=== PATIENT | female | born 1950 | race Caucasian/White ===

== ENCOUNTER → 2017-06-07 | Outpatient (CLI) | payer MEDICARE, OTHER ==
[2017-06-07 14:45] LABS: BASO # 0.1 x10^3/uL (0.0-0.2); BASO % 1 % (0-3); EOS % 0 % (0-3); HEMATOCRIT 45.9 % (36.0-47.0); HEMOGLOBIN 15.5 g/dL (12.0-15.5); LYMPH # 3.7 x10^3/uL (1.0-4.8); LYMPH % 31 % (24-48); MEAN CORPUSCULAR HEMOGLOBIN 28 pg (25-35); MEAN CORPUSCULAR HGB CONC 34 g/dL (31-37); MEAN CORPUSCULAR VOLUME 83 fL (79-100); MONO # 0.6 x10^3/uL (0.0-1.1); MONO % 5 % (0-9); NEUT # 7.5 x10^3uL (1.8-7.7); NEUT % 63 % (31-73); PLATELET COUNT 447 x10^3/uL (140-400); RED CELL DISTRIBUTION WIDTH 13.9 % (11.5-14.5); WHITE BLOOD COUNT 11.9 x10^3/uL (4.0-11.0)
== END | disposition home or self-care (01) ==
LOC: LAB 13:58
PROVIDERS: ATTEND Nurse Practitioner Family
DX: R53.83 Other fatigue (principal)
CPT/HCPCS: 36415; 85025

== ENCOUNTER → 2017-06-23 | Outpatient (CLI) | payer MEDICARE, OTHER ==
--- NOTE | 2017-06-23 12:05 | RAD ---
CT HEAD WO CONTRAST History: Dizziness for 3 weeks Comparison: None. Technique: Noncontrast CT imaging was performed of the head. Exposure: One or more of the following individualized dose reduction techniques were utilized for this examination: 1. Automated exposure control 2. Adjustment of the mA and/or kV according to patient size 3. Use of iterative reconstruction technique. Findings: No acute extra-axial or parenchymal hemorrhage is identified. There is no significant intra-axial mass effect, midline shift, or extra-axial fluid collection. The delacruz-white differentiation of the major vascular territories is preserved. The ventricles, sulci, and cisterns are within normal limits in size and configuration. There is mild ill-defined low-density of the supratentorial white matter such as of the bilateral frontal lobes. The mastoid air cells and the visualized paranasal sinuses are aerated. No acute calvarial abnormality is identified. Impression: 1. No acute intracranial abnormality is identified. If there is concern for evolving or acute ischemia, followup CT or MRI could be beneficial. There is mild ill-defined low-density such as of the frontal lobe white matter bilaterally, nonspecific findings most commonly due to chronic microvascular ischemic disease in a patient of this age. Electronically signed by: Herrera Bertrand MD (06/23/2017 12:02 PM) [id number]
== END | disposition home or self-care (01) ==
LOC: CT 10:17
PROVIDERS: ATTEND Family Medicine
DX: H81.313 Aural vertigo, bilateral (principal)
CPT/HCPCS: 70450

== ENCOUNTER → 2020-05-23 | Outpatient (CLI) | payer MEDICARE, OTHER ==
--- NOTE | 2020-05-23 11:16 | RAD ---
ABDOMEN COMPLETE History: Abdominal distention, gas Comparison: None. Findings: Multiple sonographic images of the abdomen are submitted. Pancreas is poorly seen due to bowel gas, no obvious abnormality of the limited visualized pancreatic head. There is segmental visualization of the inferior vena cava. Abdominal aortic caliber is within normal limits up to 2.5 cm. There is coarsening of the hepatic echotexture. Right lobe of the liver measured 16 cm longitudinal. Gallbladder is suboptimally visualized, no obvious intraluminal abnormality demonstrated. Spleen measured 8.9 cm. Right kidney measured 10.5 x 4.7 x 4.4 cm, no hydronephrosis. Left kidney measured 11.2 x 4.8 x 4.5 cm, no hydronephrosis. Common bile duct is within normal limits about 0.5 cm. Impression: 1. There is hepatic steatosis. 2. Gallbladder is suboptimally visualized, no obvious abnormality demonstrated. Electronically signed by: Herrera Bertrand MD (05/23/2020 11:12 AM) [id number]
== END ==
LOC: US 08:11
PROVIDERS: ATTEND Family Medicine
DX: K76.0 Fatty (change of) liver, not elsewhere classified (principal); R14.0 Abdominal distension (gaseous)
CPT/HCPCS: 76700

== ENCOUNTER → 2020-05-29 | Outpatient (CLI) | payer MEDICARE, OTHER ==
[~2020-05-29] MED LIST: IOHEXOL 240 MG/ML 50ML VIAL. PO ONE
--- NOTE | 2020-05-29 11:45 | RAD ---
EXAM: Abdomen and pelvis CT without intravenous contrast. HISTORY: Bloating. TECHNIQUE: Computed tomographic images of the abdomen and pelvis were obtained without intravenous contrast. Multiplanar reformatting was performed. *One or more of the following individualized dose reduction techniques were utilized for this examination: 1. Automated exposure control. 2. Adjustment of the mA and/or kV according to patient size. 3. Use of iterative reconstruction technique. COMPARISON: None. FINDINGS: Evaluation of the lower thorax there demonstrates no infiltrate or pleural effusion. There is a small hiatal hernia. No suspicious hepatic lesion is seen on this noncontrast exam. The gallbladder, pancreas, spleen and adrenal glands are unremarkable. 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 There is no hydronephrosis. There is no nephroureterolithiasis. The appendix is not seen and is likely surgically absent. There is extensive distal colonic diverticulosis. There is no convincing acute diverticulitis. The uterus is surgically absent. There are 1.3 cm and 0.8 cm left ovarian follicles/follicular cysts. There are 3.9 cm and 1.9 cm right ovarian cyst, the smaller of which contains a circular 8 mm calcification. The aorta is normal in caliber. There is no lymphadenopathy. There are degenerative changes involving the lumbar spine. There are sclerotic lesions throughout the sacrum and right iliac bone. IMPRESSION: 1. Cystic lesions within the right ovary measuring 3.9 cm and 1.9 cm. The possibility of a cystic neoplasm is not excluded and postmenopausal female. Correlate with a CA-125 serum tumor marker level and possible pelvic sonography for further characterization. There are also small cysts or follicles within the contralateral ovary. 2. Sclerotic lesions within the sacrum and right iliac bone, the appearance of which is most concerning for osseous metastatic disease. Correlate for known primary neoplasm. Bones scintigraphy may be useful. 3. Since of colonic diverticulosis, without evidence of diverticulitis. 4. Small hiatal hernia. Electronically signed by: Dejah Mccall MD (05/29/2020 11:42 AM) [place] [id number]
== END ==
LOC: CT 08:48
PROVIDERS: ATTEND Family Medicine
DX: K57.30 Diverticulosis of large intestine without perforation or abscess without bleeding (principal); K44.9 Diaphragmatic hernia without obstruction or gangrene; I72.8 Aneurysm of other specified arteries; Z90.710 Acquired absence of both cervix and uterus; N83.291 Other ovarian cyst, right side; M47.816 Spondylosis without myelopathy or radiculopathy, lumbar region; M53.3 Sacrococcygeal disorders, not elsewhere classified
CPT/HCPCS: 74176

== ENCOUNTER → 2020-05-31 | Outpatient (CLI) | payer MEDICARE, OTHER ==
--- NOTE | 2020-05-31 14:40 | RAD ---
Transvaginal pelvic ultrasound 05/31/2020 CLINICAL HISTORY: Cystic lesion seen in the right ovary on recent CT scan. Pelvic ultrasound was recommended for further evaluation. TECHNIQUE: A transvaginal pelvic ultrasound study was performed. Multiple images were obtained. FINDINGS: Comparison is made to the patient's CT scan of the abdomen and pelvis dated 05/21/2020. The uterus is not visualized consistent with the patient's history of a hysterectomy. The left ovary is normal in size. The left ovary measures 2.8 x 1.3 x 1.6 cm. A 1 cm cyst is seen within the left ovary. The right ovary is not visualized. A tubular anechoic structure is seen within the right ovary which measures 3 cm in greatest diameter. This corresponds to the abnormality seen on the patients CT scan. This may represent a hydrosalpinx. Clinical correlation with the patient's surgical history is recommended. No free fluid is seen. IMPRESSION: 1. Post hysterectomy. 2. 3 cm tubular structure is seen within the right adnexa which corresponds to the abnormality seen on the patients CT scan. This may represent a hydrosalpinx. Electronically signed by: Ezra Huang MD (05/31/2020 2:37 PM) [id number]
--- NOTE | 2020-05-31 15:52 | RAD ---
Whole body bone scan HISTORY: Abnormal bony lesions and pelvis and hip 25 mCi of FDG was administered intravenously and spot views are whole-body obtained after appropriate delay. The right iliac is subtle increased scintigraphic activity compared to left. There is mild increased uptake within the shoulders knees and ankles consistent with degenerative change. There is multifocal increased uptake within the spine consistent with degenerative change. IMPRESSION: Subtle increased uptake within the right iliac could be secondary to Paget's disease. Clinical correlation is suggested. Electronically signed by: Josh Gomez III, MD (05/31/2020 3:49 PM) [facility]
== END ==
LOC: NM 08:40
PROVIDERS: ATTEND Family Medicine
DX: D39.11 Neoplasm of uncertain behavior of right ovary (principal); N83.292 Other ovarian cyst, left side; M17.0 Bilateral primary osteoarthritis of knee; M19.072 Primary osteoarthritis, left ankle and foot; M19.071 Primary osteoarthritis, right ankle and foot; M19.012 Primary osteoarthritis, left shoulder; M19.011 Primary osteoarthritis, right shoulder; R93.7 Abnormal findings on diagnostic imaging of other parts of musculoskeletal system; Z90.711 Acquired absence of uterus with remaining cervical stump
CPT/HCPCS: 76830; 78306; A9503

== ENCOUNTER 2021-09-08 14:57 | Emergency (ER) | payer MEDICARE, OTHER ==
[~2021-09-08] VITALS: Ht 165.1 cm; Wt 77.6 kg
--- NOTE | 2021-09-08 15:29 | PHYS DOC ---
Past History Past Surgical History: No Surgical History (JERAD ALCALA APRN) Alcohol Use: Occasionally (JERAD ALCALA APRN) General Adult EDM: Chief Complaint: UPPER EXTREMITY PAIN HPI: HPI: Patient is a 71-year-old female who presents to the emergency department for right shoulder pain following a fall. Patient reports that around 1430 she sl ipped on a plastic bag [employer] and fell forward. She does report hitting her head denies loss of consciousness, blood thinner use, nausea, vomiting, confusion. Patient is reporting pain to her right shoulder 10 out of 10. There is no obvious deformity. No treatment prior to arrival. Patient has good range of motion of her hand, denies any decreased sensation and neck or back pain. (JERAD ALCALA APRN) Review of Systems: Review of Systems: Constitutional: negative unless reported in HPI Eyes: negative unless reported in HPI HENT: negative unless reported in HPI Respiratory: negative unless reported in HPI Cardiovascular: negative unless reported in HPI GI: negative unless reported in HPI : negative unless reported in HPI Musculoskeletal: negative unless reported in HPI Integument: negative unless reported in HPI Neurologic: negative unless reported in HPI Endocrine: negative unless reported in HPI Lymphatic: negative unless reported in HPI Psychiatric: negative unless reported in HPI (JERAD ALCALA APRN) Allergies: Allergies: Allergies Coded Allergies Type Severity Reaction Last Updated Verified povidone-iodine Allergy Unknown 05/29/20 Yes soap Allergy Unknown 05/29/20 Yes (JERAD ALCALA APRN) Physical Exam: PE: Constitutional: Well developed, well nourished, no acute distress, non-toxic appearance. [] HENT: Normocephalic, atraumatic, bilateral external ears normal, oropharynx moist, no oral exudates, nose normal. [] Eyes: PERRL, EOMI, conjunctiva normal, no discharge. [] Neck: Normal range of motion, no tenderness, supple, no stridor. [] Cardiovascular:Heart rate regular rhythm, no murmur [] Lungs & Thorax: Bilateral breath sounds clear to auscultation [] Abdomen: Bowel sounds normal, soft, no tenderness, no masses, no pulsatile masses. [] Skin: Warm, dry, no erythema, no rash. [] Back: No tenderness, normal range of motion Extremities: No tenderness, no cyanosis, no clubbing, ROM intact, no edema. [] Right shoulder: Obvious deformity noted to right shoulder, neuro intact, moveme nt intact to hand. Neurologic: Alert and oriented X 3, normal motor function, normal sensory function, no focal deficits noted. [] Psychologic: Affect normal, judgement normal, mood normal. [] (JERAD ALCALA APRN) Current Patient Data: Vital Signs: Vital Signs Date Time Temp Pulse Resp B/P (MAP) Pulse Ox O2 Delivery O2 Flow Rate FiO2 09/08/21 14:59 98.0 81 18 150/78 (102) 92 Room Air (JERAD ALCALA APRN) EKG: EKG: [] (JERAD ALCALA APRN) Radiology/Procedures: Radiology/Procedures: []PROCEDURE: HUMERUS RIGHT EXAM: Right shoulder, 3 views; right humerus, single view. HISTORY: Fall. COMPARISON: None. FINDINGS: 3 views of the right shoulder and a single view of the humerus are obtained. There is an anterior shoulder dislocation there is mild osteoarthritis involving the acromioclavicular joint. IMPRESSION: Right shoulder dislocation. Follow-up following reduction is recommended to confirm appropriate alignment and exclude a concomitant fracture. Electronically signed by: Dejah Santana MD (09/08/2021 3:28 PM) [id number] PROCEDURE: SHOULDER 2+V RIGHT Exam: Right shoulder 2 views INDICATION: Post reduction TECHNIQUE: Frontal and transscapular Y views the right shoulder Comparisons: Radiograph earlier today FINDINGS: There is improved alignment at the right glenohumeral joint. No acute fractures identified. Soft tissues are unremarkable. Bone mineralization is normal. IMPRESSION: Improved alignment at the right glenohumeral joint. Electronically signed by: Fatou Guerra MD (09/08/2021 4:57 PM) [facility] DICTATED AND SIGNED BY: FATOU GUERRA MD DATE: 09/08/21 1656 CC: RONALDO INMAN MD; RAIZA RAMOS DO ~MTH0 0 DICTATED AND SIGNED BY: DEJAH SANTANA MD DATE: 09/08/21 1527 CC: RONALDO INMAN MD; RAIZA RAMOS DO ~MTH0 0 PROCEDURE: CT HEAD AND CERVICAL SPINE WO Exam: CT head and cervical spine INDICATION: Head injury, fall TECHNIQUE: Sequential axial images through the head and cervical spine were obtained without the administration of IV contrast. Exposure: One or more of the following in the visualized dose reduction techniques were utilized for this examination: 1. Automated exposure control 2. Adjustment of the MA and/or KV according to patient size 3. Use of iterative of reconstructive technique Comparisons: None FINDINGS: Head: No focal parenchymal lesion or hemorrhage is identified. There is no midline shift or sulcal effacement. Mild patchy hypodensity in the periventricular white matter. No acute vascular territory infarction is identified. Chaparro-white distinction is preserved. The ventricular system is within normal limits without compression hydrocephalus. The basal cisterns are well maintained. The visualized portions of the paranasal sinuses and mastoid air cells are well- pneumatized. No acute fractures. Cervical spine: Straightening of cervical spine which may positional. Grade 1 anterolisthesis of C3 on C4 and C4 on C5. Fracture to the cervical spine is not identified. Multilevel spondylotic change in cervical spine with degenerative disc disease greatest at C4-C5 and C5-C6. Bilateral facet arthropathy is also noted in cervical spine. Visualized paraspinal soft tissues are unremarkable. IMPRESSION: 1. No acute intracranial abnormality. 2. Negative CT C-spine for acute traumatic injury. Electronically signed by: Fatou Guerra MD (09/08/2021 5:30 PM) [facility] DICTATED AND SIGNED BY: FATOU GUERRA MD DATE: 09/08/21 1724 CC: RONALDO INMAN MD; JERAD ALCALA APRN; RAIZA RAMOS DO ~MTH0 0 (JERAD ALCALA APRN) Radiology/Procedures: Indication: Right anterior shoulder dislocation Consent: Provided verbally by patient, daughter present in ED who signed consent form Physician Involvement: The attending physician was present and supervising this procedure. Pre-Sedation Documentation and Exam: [id number] Airway Assessment: Mallampati 2 Prior History of Anesthesia Complications: Nausea ASA Classification:1 Sedation/ Anesthesia Plan: Ketamine Medications Used: Ketamine Monitoring and Safety: The patient was placed on a nurse monitoring and vital signs, pulse oximetry and level of consciousness were continuously evaluated throughout the procedure. The patient was closely monitored until recovery from the medications was complete and the patient had returned to baseline status. Respiratory therapy was on standby at all times during the procedure. (The following sections must be completed) Post-Sedation Vital Signs: See nursing documentation, hemodynamically stable Post-Sedation Exam: Alert and oriented, GCS 15 Complications: None Indication: Right anterior shoulder dislocation Consent: Provided verbally by patient, daughter signed consent for Procedure: The pre-reduction exam showed equal radial pulses classic neuro sensation intact. The patient was placed in supine position. Anesthesia/pain control with ketamine. Reduction of the right shoulder was performed by traction/countertraction. Post reduction films showed reduction. A post- reduction exam revealed neurologic status intact. The affected area was immobilized with shoulder immobilize. The patient tolerated the procedure . Complications: None (RAIZA RAMOS DO) Heart Score: C/O Chest Pain: N/A Risk Factors: Risk Factors: DM, Current or recent (<one month) smoker, HTN, HLP, family history of CAD, obesity. Risk Scores: Score 0 - 3: 2.5% MACE over next 6 weeks - Discharge Home Score 4 - 6: 20.3% MACE over next 6 weeks - Admit for Clinical Observation Score 7 - 10: 72.7% MACE over next 6 weeks - Early Invasive Strategies (JERAD ALCALA APRN) Course & Med Decision Making: Course & Med Decision Making Pertinent Labs and Imaging studies reviewed. (See chart for details) []Patient presents to the emergency department today for right shoulder pain after falling. Patient does have an obvious deformity to her right shoulder, she is neurovascularly intact. Consulted physician. Patients pain was treated. Conscious sedation performed with ketamine in the emergency department, supervising physician at bedside and the close reduction of the right shoulder was performed. Patient tolerated procedure. Patient was recovered following procedure per nursing guidelines. Patient's shoulder was placed in a shoulder immobilizer. post reduction xray shows improved alignment. Due to head injury an d age, ct of head performed, which was negative. I discussed with patient all findings and diagnostic testing as well as the need to follow-up with PCP for further evaluation and treatment or return to the ER if any new or worsening symptoms. Strict return precautions were also discussed at length. Patient voiced understanding and agreement with the plan. Patient is hemodynamically stable at the time of disposition. (JERAD ALCALA APRN) Dragon Disclaimer: Dragon Disclaimer: This electronic medical record was generated, in whole or in part, using a voice recognition dictation system. (JERAD ALCALA APRN) Departure Departure: Impression: Primary Impression: Shoulder dislocation Qualified Codes: S43.004A - Unspecified dislocation of right shoulder joint, initial encounter Disposition: HOME / SELF CARE / HOMELESS Condition: GOOD Referrals: RONALDO INMAN MD (PCP) RONALDO VALDEZ II, MD Patient Instructions: Shoulder Dislocation Additional Instructions: You were seen in the emergency department today following a dislocation of your right shoulder. The scan of your head was negative. The shoulder was put back into place and you were placed in a shoulder immobilizer. Continue to wear this at home. Can take ibuprofen or naproxen for mild pain. For severe pain you are being discharged home with pain medication. This medication is hydrocodone and Tylenol and a combination tablet. Not take any additional Tylenol with this medication. This medication may cause sedation so do not take when he needs to be alert, driving a vehicle or with alcohol. Follow-up with your primary care provider tomorrow regarding your ER visit, you will need to follow-up with an orthopedic doctor within a week. Continue to wear your shoulder immobilizer until you follow-up with the orthopedic doctor. An orthopedic doctor was attached to your discharge papers. Return to the emergency department if you redislocate your shoulder or have increased pain, decreased sensation to your extremity, swelling or any new or worsening concerns. Scripts Hydrocodone Bit/Acetaminophen (HYDROCODONE-APAP 5-325 ) 1 Each Tablet 1 TAB PO PRN Q6HRS PRN for PAIN for 2 Days, #8 TAB 0 Refills Prov: JERAD ALCALA APRN 09/08/21 JERAD ALCALA APRN Sep 08, 2021 15:29 RAIZA RAMOS DO Sep 08, 2021 18:20
--- NOTE | 2021-09-08 15:30 | RAD ---
EXAM: Right shoulder, 3 views; right humerus, single view. HISTORY: Fall. COMPARISON: None. FINDINGS: 3 views of the right shoulder and a single view of the humerus are obtained. There is an an terior shoulder dislocation there is mild osteoarthritis involving the acromioclavicular joint. IMPRESSION: Right shoulder dislocation. Follow-up following reduction is recommended to confirm appro priate alignment and exclude a concomitant fracture. Electronically signed by: Dejah Mccall MD (09/08/2021 3:28 PM) [id number]
[2021-09-08] MEDS: MIDAZOLAM HCL PF 5 MG/5 ML VIAL. IV ONE (15:39)
[2021-09-08] MEDS ORDERED: HYDROmorphone PF 1 MG/ML DISP.SYRIN ONE (15:50)
[2021-09-08] MEDS: HYDROmorphone PF 1 MG/ML DISP.SYRIN IVP ONE (15:55)
[2021-09-08] MEDS ORDERED: ONDANSETRON PF 4 MG/2 ML VIAL. ONE (15:56)
[2021-09-08] MEDS: ONDANSETRON PF 4 MG/2 ML VIAL. IVP ONE (16:03)
[2021-09-08] MEDS: KETAMINE HCL 500 MG/10 ML VIAL. IV ONE (16:25)
[2021-09-08] MEDS ORDERED: HYDR-2155 PO (16:56)
--- NOTE | 2021-09-08 17:00 | RAD ---
Exam: Right shoulder 2 views INDICATION: Post reduction TECHNIQUE: Frontal and transscapular Y views the right shoulder Comparisons: Radiograph earlier today FINDINGS: There is improved alignment at the right glenohumeral joint. No acute fractures identified. Soft tiss ues are unremarkable. Bone mineralization is normal. IMPRESSION: Improved alignment at the right glenohumeral joint. Electronically signed by: Fatou Sanders MD (09/08/2021 4:57 PM) TAMIA
--- NOTE | 2021-09-08 17:32 | RAD ---
Exam: CT head and cervical spine INDICATION: Head injury, fall TECHNIQUE: Sequential axial images through the head and cervical spine were obtained without the admi nistration of IV contrast. Exposure: One or more of the following in the visualized dose reduction techniques were utilized for this examination: 1. Automated exposure control 2. Adjustment of the MA and/or KV according to patient size 3. Use of iterative of reconstructive technique Comparisons: None FINDINGS: Head: No focal parenchymal lesion or hemorrhage is identified. There is no midline shift or sulcal effaceme nt. Mild patchy hypodensity in the periventricular white matter. No acute vascular territory infarction i s identified. Chaparro-white distinction is preserved. The ventricular system is within normal limits without compression hydrocephalus. The basal cisterns are well maintained. The visualized portions of the paranasal sinuses and mastoid air cells are well-pneumatized. No acute fractures. Cervical spine: Straightening of cervical spine which may positional. Grade 1 anterolisthesis of C3 on C4 and C4 on C 5. Fracture to the cervical spine is not identified. Multilevel spondylotic change in cervical spine with degenerative disc disease greatest at C4-C5 and C5-C6. Bilateral facet arthropathy is also noted in cervical spine. Visualized paraspinal soft tissues are unremarkable. IMPRESSION: 1. No acute intracranial abnormality. 2. Negative CT C-spine for acute traumatic injury. Electronically signed by: Fatou Sanders MD (09/08/2021 5:30 PM) [id number]
[2021-09-08 18:00] VITALS: BP 151/81
[2021-09-08] MEDS ORDERED: ONDANSETRON ODT 4 MG TAB.RAPDIS ONE (18:19)
== END 2021-09-08 18:25 | disposition home or self-care (01) ==
LOC: ER 14:57
DX: S43.004A Unspecified dislocation of right shoulder joint, initial encounter (principal); Z88.8 Allergy status to other drugs, medicaments and biological substances; W01.198A Fall on same level from slipping, tripping and stumbling with subsequent striking against other object, initial encounter; Y93.89 Activity, other specified; Y92.89 Other specified places as the place of occurrence of the external cause; Y99.8 Other external cause status
CPT/HCPCS: 23650; 70450; 72125; 73030; 73060; 96374; 99285; J1170; J2250; J2405; 73020